=== PATIENT | female | born 1985 | race Caucasian/White ===

== ENCOUNTER 2024-02-03 14:42 | Outpatient (CLI) | payer BC, SELFPAY ==
--- NOTE | 2024-02-03 15:00 | US_ITS ---
Patient: JACKIE SCHAFER Facility:?[facility] RIS Patient ID:?[id number] Site Patient ID:?[id number]. Site :?1985 Study:?US-OB Pelvis OB F/U-02/03/2024 4:19:24 PM Ordering Physician:?Ana Laura Rivas Final Report: INDICATION: f/u Growth AMA, GDM COMPARISON: None available. TECHNIQUE: Real time mesa scale imaging of the fetus was performed. FINDINGS: Sonographic imaging demonstrates a single living intrauterine gestation. Fetus demonstrates a regular cardiac rate of 142 beats per minute. Fetus has a vertex position. The placenta lies posteriorly. Amniotic fluid volume appears normal and there is a single deepest vertical pocket: 3.3 cm. The estimated weight is 2965gm which lies at the 79th %. BPD 71st percentile. HC 81st percentile. AC 83rd percentile. FL 70th percentile. The HC/AC ratio measures 1.03 range (0.92-1.06). IMPRESSION: Sonographic gestational age 36 weeks 5 days and sonographic due date of 02/26/2024. Sonographic age 9 days ahead of the clinical age. Estimated weight 79th percentile. Abdominal circumference 83rd percentile Dictated by Leoncio Robles MD @ 02/04/2024 8:53:23 AM Signed by:?Leoncio Robles MD @02/04/2024 8:53:23 AM (Electronic Signature)
== END 2024-02-03 14:43 | disposition home or self-care (01) ==
LOC: US 14:43
PROVIDERS: Visit Provider Obstetrics & Gynecology
DX: O24.410 Gestational diabetes mellitus in pregnancy, diet controlled (principal); O09.523 Supervision of elderly multigravida, third trimester; Z3A.36 36 weeks gestation of pregnancy
CPT/HCPCS: 76816

== ENCOUNTER 2024-02-10 13:24 | Outpatient (CLI) | payer BC, SELFPAY ==
[2024-02-11 19:08] LABS: Strep B DNA Probe POSITIVE (Negative)
[2024-02-11 21:24] LABS: Strep B Susceptibility Needed? No
== END 2024-02-10 13:25 | disposition home or self-care (01) ==
LOC: NFLDREF 13:24
PROVIDERS: Visit Provider Obstetrics & Gynecology
DX: Z34.93 Encounter for supervision of normal pregnancy, unspecified, third trimester (principal)
CPT/HCPCS: 87081; 87653

== ENCOUNTER 2024-02-16 14:13 | Outpatient (CLI) | payer BC, SELFPAY ==
[2024-02-16 14:52] VITALS: BP 119/73; PULSE 122
--- NOTE | 2024-02-16 15:13 | PM.OBLDTN ---
OB - Triage/Final Diagnosis Visit Information Time Seen by Provider: 14:00 Date Seen: 02/16/24 Date of evaluation: 02/16/24 Narrative: The patient is a 38 year old 8 para 3 043 at 37.2 weeks gestation by LMP consistent with 1st trimester US, who presents with chest pressure, incision pain, possible LOF/discharge. Very active movement. Denies vaginal bleeding. Rare contractions. Her history is significant for previous CDx3. She is upset we are not allowing her to TOLAC after three delivery as that was initially her desire. I reiterated that unfortunately, that is not a safe plan. Overall, Marti feels unwell today. She reports being more fatigue and uncomfortable. Her chest pain is not associated with SOB, does not radiate, improves with rest. Her incision pain is actually bilateral side pain that sounds like round ligament pain. She had no pain with palpation along the whole incision. She reports increased vaginal discharge at the end of the day for the last two weeks. She is wondering if her water broke as her mucous plug fell out recently. She did have intercourse within the last 24 hours. Patient denies fever, chills, SOB, n/v, headache, vision changes, RUQ pain, or dizziness. Denies hematuria or dysuria. Physical exam: General: No acute distress Psych: Alert and oriented x4, full affect HEENT: Normocephalic, atraumatic Neck: No cervical adenopathy, no thyromegaly Heart: Regular rate and rhythm, no murmur rub or gallop Lungs: Clear to auscultation bilaterally Abdomen: Gravid. soft, no tenderness, rebound, or guarding. Incision: Well healed. No tenderness along the entire incision site. Tolerated abdominal ultrasound around that area without issue. No erythema, induration, or abnormal discharge/breakdown Skin: No lesions or rashes Lower extremities: No edema or erythema Pelvic exam: Sterile speculum performed as she had intercourse with last 24 hours so AmniSure can not be used. Mons normal, clitoris normal, urethral meatus normal. Labia minora and majora normal in appearance bilaterally. Perineum and anus normal appearance. Vaginal introitus normal appearance. Vagina pink and well rugated with normal white discharge. Cervix pink and without lesion. Cervix visually closed. Negative pooling. Negative valsalva test. No ferning noted. SVE: cl/thi/hi BPP performed due to non reactive NST for 40 minutes. After 40 minutes, NST was reactive and reassuring. BPP 8/8. SDP 5.5 cm EKG with sinus tachycardia. HR 111 bpm Troponin <0.01 CBC with normal WBC, hgb and plt Vaginitis panel with GC/chlamydia negative Work up overall negative. status is reassuring. She is not in labor nor have rupture of membrane. She declined Tylenol or any kind of other analgesia as she is currently comfortable. Stable and appropriate for discharge with strict ED precaution and close follow up to clinic (clinic appointment on 02/19). Evaluation Laboratory results: Laboratory Tests 02/16/24 Range/Units 14:45 Vaginal Bacterial Vaginosis Pending Vaginal Maggie species Pending Vag C. glabrata/krusei Pending Vag T. vaginalis Pending C.trachomatis Ampl DNA Pending N.gonorrhoeae Ampl DNA Pending Vital signs: Vital Signs - 24 hr 02/16/24 14:52 Pulse Rate 122 H Blood Pressure 119/73
--- NOTE | 2024-02-16 15:16 | US_ITS ---
Patient: JACKIE SCHAFER Facility:?[facility] Patient ID:?[id number] Site Patient ID:?[id number]. Site :?1985 Study:?US-OB Pelvis BPP-02/16/2024 3:48:57 PM Ordering Physician:MARGUERITE Final Report: Indication: Nonreassuring FHR TIFFANIE: 03/06/2024 Technique: Real-time sonographic images of the pelvis were obtained transabdominally using grayscale, color, and Doppler imaging. Comparison: 02/03/2024 Findings: A single intrauterine is present in cephalic position. Cardiac activity in the fetus is demonstrated at 142-154 BPM. Placenta: Fundal. No previa or abruption. Amniotic Fluid: 5.5 centimeter single deepest pocket. Biophysical profile: Breathin/2 Movement: 2/2 Tone: 2/2 Fluid volume: 2/2 Total: 07/08 Impression: 1. Single living intrauterine gestation in cephalic presentation, with heartrate 142-154 BPM. 2. Fundal placenta without previa or abruption. 3. Amniotic fluid, 5.5 centimeter single deepest pocket. 4. BPP 07/08. Dictated by Rodriguez Cordova MD @ 02/16/2024 4:29:04 PM Signed by:?Rodriguez Cordova MD @02/16/2024 4:29:04 PM (Electronic Signature)
[2024-02-16 15:28] VITALS: BP 103/57; PULSE 111
[2024-02-16 15:29] VITALS: RESP 18; TEMP 36.8
[2024-02-16 15:54] LABS: Bacterial Vaginosis* Negative (Negative); Candida glab/krus NOT DETECTED (No Detected); Candida species NOT DETECTED (No Detected); Trichomonas vaginalis NOT DETECTED (No Detected)
[2024-02-16 16:04] LABS: Basophils Absolute Auto 0.02 K/uL (0.00-0.30); Basophils Percent Auto 0.3 % (0.0-3.0); Eosinophils Absolute Auto 0.03 K/uL (0.00-0.50); Eosinophils Percent Auto 0.4 % (0.0-7.0); Hematocrit 37.4 % (33.0-51.0); Hemoglobin* 12.5 gm/dL (12.0-16.0); Immature Granulocytes Abs Auto 0.23 K/uL (0.00-0.30); Immature Granulocytes Pct Auto 3.2 %; Lymphocytes Percent Auto 5.2 % (20-44); Mean Corpuscular HGB Conc 33 gm/dL (32-36); Mean Corpuscular Hemoglobin 29 pg (26-34); Mean Corpuscular Volume 87 fL (80-100); Monocytes Percent Auto 7.8 % (0.0-11.0); Neutrophils Percent Auto 83.1 % (42.0-72.0); Platelet Count* 174 K/uL (140-440); Red Blood Count 4.32 m/uL (4.00-5.20); White Blood Count* 7.28 K/uL (4.50-11.00)
[2024-02-16 16:19] LABS: Albumin* 3.3 g/dL (3.3-5.0); Chloride* 105 mmol/L (96-114); Sodium* 133 mmol/L (135-149)
[2024-02-16 16:20] LABS: Potassium* 4.1 mmol/L (3.6-5.1)
[2024-02-16 16:22] LABS: Alanine Aminotransferase* 32 U/L (4-35); Alkaline Phosphatase* 140 U/L (40-150); Anion Gap 5 mEq/L (7-15); Aspartate Amino Transferase* 15 U/L (12-35); Bilirubin Total* 0.3 mg/dL (0.1-1.5); Blood Urea Nitrogen* 15 mg/dL (5-24); Carbon Dioxide* 23 mmol/L (20-32); Creatinine* 0.6 mg/dL (0.5-1.5); Estimated Glomerular Filt Rate 118 ml/min; Glucose* 80 mg/dL (60-115); Total Protein* 6.1 g/dL (6.0-8.3)
[2024-02-16 16:23] LABS: Calcium* 8.8 mg/dL (8.4-10.6)
[2024-02-16 16:24] LABS: Chlamydia DNA Amplified* NOT DETECTED (No Detected); GC DNA Amplified* NOT DETECTED (No Detected)
[2024-02-16 16:48] LABS: Troponin I* < 0.01 ng/mL (0.01-0.04)
--- NOTE | 2024-02-16 17:06 | PC.OBNST ---
NST Note NST Note Start: 02/16/24 14:22 Freq: ONCE Status: Active Protocol: Document 02/16/24 17:03 RENA (Rec: 02/16/24 17:06 ARSENNIXON [id number]) NST Note 8 Para (# of births) 3 EDC 03/06/24 Gestational Age In Weeks & Days 37 Weeks & 2 Days High Risk Factors Diabetes - Gestational Diet Controlled Patient Presented with Complaint(s) of Pain If Pain, describe location Presented to us for abdominal pain that was located at the edge of c/s scar Reactive Yes Appropriate for Gestational Age Yes HANS Parker RNC Date 02/16/24 Reactive Yes Appropriate for Gestational Age Yes HANS Lee RNC Date 02/16/24 OB NST charge Yes Complete NST Note via Write Note Yes The provider's electronic signature indicates the NST is reactive/appropriate for gestational age. *Note to provider: If an addendum is required, open the patient's chart and click on the note under the Nurse/Allied Health tab.
[2024-02-16 17:33] LABS: Slide Review Acceptable Review (Acceptable); Slide Review Reflex No
[2024-02-25 10:50] LABS: Fern Test* Ferning not present
== END 2024-02-16 16:55 | disposition home or self-care (01) ==
LOC: OB OUT 14:15 → OB 14:16
PROVIDERS: Visit Provider Obstetrics & Gynecology
DX: O47.1 False labor at or after 37 completed weeks of gestation (principal); O24.419 Gestational diabetes mellitus in pregnancy, unspecified control; Z3A.37 37 weeks gestation of pregnancy
CPT/HCPCS: 36415; 59025; 76815; 76819; 80053; 81513; 84484; 85025; 87481; 87491; 87591; 87661; 93005; G0463; Q0114

== ENCOUNTER 2024-02-25 06:22 | Inpatient (IN) | payer BC, SELFPAY ==
[2024-02-25] VITALS (34 sets, daily range): BP systolic 95–116; BP diastolic 57–77; PULSE 63–101; RESP 18; TEMP 36.7–37.4; O2SAT 94–97; BMI 34.2
[2024-02-25 08:13] LABS: Basophils Absolute Auto 0.01 K/uL (0.00-0.30); Basophils Percent Auto 0.1 % (0.0-3.0); Eosinophils Absolute Auto 0.06 K/uL (0.00-0.50); Eosinophils Percent Auto 0.7 % (0.0-7.0); Hematocrit 39.2 % (33.0-51.0); Hemoglobin* 13.2 gm/dL (12.0-16.0); Immature Granulocytes Abs Auto 0.37 K/uL (0.00-0.30); Immature Granulocytes Pct Auto 4.4 %; Lymphocytes Absolute Auto 1.81 K/uL (0.90-2.90); Lymphocytes Percent Auto 21.5 % (20-44); Mean Corpuscular HGB Conc 34 gm/dL (32-36); Mean Corpuscular Hemoglobin 29 pg (26-34); Mean Corpuscular Volume 86 fL (80-100); Neutrophils Absolute Auto 5.67 K/uL (1.7-7.0); Neutrophils Percent Auto 67.3 % (42.0-72.0); Platelet Count* 229 K/uL (140-440); RDW Coefficient of Variation % 13.7 % (11.5-15.5); Red Blood Count 4.58 m/uL (4.00-5.20); Slide Review Reflex No; White Blood Count* 8.43 K/uL (4.50-11.00)
[2024-02-25] MEDS: LACTATED RINGERS 1000 ML 1,000 ML 100 ML IV ×2 (08:24→09:12)
--- NOTE | 2024-02-25 08:27 | W.ANESCHARGE ---
Anesthesia Charges Start Date/Time Anesthesia Start Date: 02/25/24 Anesthesia Start Time: 08:32 Stop Date/Time Anesthesia Stop Date: 02/25/24 Anesthesia Stop Time: 10:13
--- NOTE | 2024-02-25 08:27 | W.PM.NB ---
Nerve Block Nerve Block Time Seen by Provider: 09:58 Date Seen: 02/25/24 Type of block requested by surgeon for post-operative analgesia: TAP Side: bilateral Time out performed: Yes Verification of patient name: Yes Verification of date of : Yes Site marking: site marked Name of person performing procedure: Kehinde Continuous monitoring Was continuous monitoring of O2 sat, B/P, personnel monitor, recorded every 15 minutes?: Yes Procedure Checklist: sterile prep, needles and gloves Ultrasound guided. Images saved: Yes Medications given in 5ml increments after negative aspiration: Marcaine %: 0.25 mL: 30 Needle gauge: 20 and Exparel mL: 10 Patient tolerated procedure well: Yes Additional comments: Needle noted between internal oblique and transversus abdominus. Local spread visualized Block Charges Block Charge (with Pro Fee): TAP Bilateral Use of Ultrasound Machine for Block: Yes- US Guidance/pain block
[2024-02-25] MEDS: CEFAZOLIN 2 GM INJ IVP (08:53)
--- NOTE | 2024-02-25 10:06 | W.PM.H&PU ---
History & Physical Update History & Physical Update H&P Reviewed and patient assessed: No changes noted
--- NOTE | 2024-02-25 10:06 | PM.OBPRCCS ---
Procedure Date of procedure: 02/25/24 Pre-op diagnosis: 38+4 weeks gestation, h/o 3 prior c-sections Post-op diagnosis: same Procedure Done: Global Will [facility] bill your pro fee for this procedure?: Yes Blood Loss Measurement Type: QBL (197 mL) Bakri Used: No IV fluids (mL): 1,400 Urine Output (mL): 100 Surgeon: Ana Laura Rivas MD Anesthesia Type: Spinal (and TAP block) Findings: Thickened, retracted Pfannenstiel scar. Moderate adhesions between Sharan's and parietal fascia and rectus muscles, underlying peritoneum, and omentum. Moderate adhesions between bladder and lower uterine segment. Live-born male infant, cephalic presentation, Apgars eight and nine at one and 5 minutes respectively, weight 7 lb 14 oz. Procedure Name: Repeat low transverse section with scar revision. Procedure Description: After obtaining informed consent, the patient was taken to the operating room where spinal anesthesia was obtained and found to be adequate. She was prepared and draped in the normal sterile fashion in the dorsal supine position with a leftward tilt. A Pfannenstiel skin incision was made with a scalpel in elliptical fashion around the patient's previous Pfannenstiel scar. This incision was carried down to the underlying layer of fascia with the Bovie. The fascia was incised in the midline and the incision extended laterally. The superior and inferior aspects of the fascial incision were grasped with Giovana clamps, elevated and the underlying rectus muscles dissected off sharply and with electrocautery. This dissection took an increased amount of time given the dense adhesions. The rectus muscles were then in the midline. There were some omental adhesions to the peritoneum on the right side, but these were easily retracted to the right and not taken down. The adhesions between the bladder and lower uterine segment were taken down sharply with Metzenbaum scissors. The Henrik O retractor was then placed into the incision. The lower uterine segment was then incised in a transverse fashion with the scalpel. Upon entry into the uterus, amniotic membranes bulged. Membranes were ruptured with the pickups, clear amniotic fluid was noted. The uterine incision was extended laterally with blunt finger fractionation. The 's head was delivered atraumatically, followed by the remainder of the infant's body. The nose and mouth were suctioned with the bulb suction. The cord was doubly clamped and cut, and the was handed off the field for evaluation. The placenta was delivered spontaneously with umbilical cord traction and fundal massage. The uterus was cleared of all clots and debris. The uterine incision was reapproximated in a running locking fashion with a 0 chromic suture. A 2nd layer of the same suture was used to imbricate in horizontal fashion. The gutters were irrigated and suctioned. All instruments and retractors were removed. The anterior peritoneum was reapproximated in a running fashion with a 3-0 Vicryl suture taking care not to incorporate the omentum. The subfascial tissues were carefully inspected and hemostasis assured. The fascia was reapproximated in a running fashion with a looped 0 Maxon suture. The subcutaneous tissues were copiously irrigated. Hemostasis was assured. The incision was undermined where retracted. The skin was closed in a subcuticular fashion with 4-0 Vicryl. Surgical glue and dressing were applied. The patient tolerated the procedure well. Sponge, lap, needle, and instrument counts were reported as correct x2. The patient was taken to the recovery room, awake, and in stable condition. She did receive 2 grams of IV Ancef preoperatively. Complications: None. Pathology: none sent Surgery Debrief Performed: Yes Condition: stable Disposition: floor [place] total score - 1 minute: 8 total score - 5 minute: 9
--- NOTE | 2024-02-25 10:19 | W.ANESCHARGE ---
Anesthesia Charges Start Date/Time Anesthesia Start Date: 02/25/24 Anesthesia Start Time: 08:32 Stop Date/Time Anesthesia Stop Date: 02/25/24 Anesthesia Stop Time: 10:13
[2024-02-26] VITALS (10 sets, daily range): BP systolic 103–111; BP diastolic 65–75; PULSE 73–84; RESP 12–18; TEMP 36.3–37.4; O2SAT 95–97
[2024-02-26] MEDS: KETOROLAC 30 MG/ML inj IVP ×4 (05:00→23:53)
[2024-02-26 06:01] LABS: Hemoglobin* 11.6 gm/dL (12.0-16.0)
--- NOTE | 2024-02-26 09:09 | P.OBPN_ITS ---
OB - PN:Subj Subjective Date Seen: 02/26/24 Patient comments OB post-: no complaints and pain well controlled [place] infant status: and doing well [place] feeding status: exclusively Narrative: Marti is a 38 y.o. who was admitted to L & D for repeat C/S.? She had an uncomplicated repeat .? ? The patient feels well.? The pain is well controlled with current medications.? She states she notices a sloshing sound when up walking last evening. She felt this sound was coming from her abdomen, unable to reproduce this this morning. She has no other new complaints.? She is breast feeding and reports things are going well.? the patient has done well.? Vitals have been stable.? She has remained afebrile.? Has a good appetite, is tolerating a general diet.? She is voiding without difficulty.? She is passing gas and has not had a bowel movement.? She is ambulating and denies any dizziness.? Has Small amount of rubra lochia.? OB - PN: Obj Exam Physical Exam: Vital signs: Temp Pulse Resp BP Pulse Ox O2 Del Method 98.5 F 74 18 104/65 97 Room Air 02/26/24 05:09 02/26/24 05:09 02/26/24 06:49 02/26/24 05:09 02/26/24 05:09 02/26/24 05:09 Narrative: GENERAL APPEARANCE:? normal affect, alert, no distress MOOD:? appropriate CHEST:? clear to auscultation HEART:? regular rate and rhythm ABDOMEN:? soft, non-tender the uterine fundus is firm At Umbilicus, Midline and is appropriate for the stage of recovery. EXTREMITIES:? normal and trace edema Incision: Healing well, no surrounding erythema, abnormal induration or discharge Urinary Catheter Management: Wolf: Cath placed during this visit: yes, but has since been removed by the nurse Reason for continuing: surgical procedure Insertion date: 02/25/24 Insertion time: 08:50 Removal date: 02/25/24 Removal time: 20:00 OB - PN: Obj Data Labs Labs: Laboratory Results - last 24 hr 02/26/24 05:40 Hgb 11.6 L OB - PN: A/P Delivery Assessment and Plan (1) care and examination immediately after delivery: Status: Acute (2) Lactating mother: Status: Acute Plan day: 1 Plan: routine care Comments: Assessment/Plan?G 8 P 4 status post uncomplicated repeat .? ?? 1.? Continue route PP cares? 2.? .? May see if desired? 3.? Anticipate discharge home tomorrow or the following day per pt preference? 4. Plan 2 hr GTT in AM if patient agrees to this?
--- NOTE | 2024-02-26 11:00 | PM.ANPOST ---
Post Anesthesia Note Post Anesthesia Note Patient seen: Inpatient Respiratory Status: adequate Cardiovascular Status: adequate Mental Status: baseline Pain: adequate Temp: baseline Anesthetic awareness: N/A Complications: none Follow care: none
[2024-02-26] MEDS: SIMETHICONE 80 MG TAB.CHEW PO (12:14)
[2024-02-27 01:12] LABS: Rapid Plasma Reagin (RPR) Non Reactive (Non Reactive)
[2024-02-27 04:55] VITALS: BP 98/59; PULSE 66; RESP 12; TEMP 36.4
[2024-02-27 07:56] VITALS: BP 115/75; PULSE 70; RESP 16; TEMP 36.4; O2SAT 97
--- NOTE | 2024-02-27 08:17 | P.DS_ITS ---
DS: Providers Provider Date Seen: 02/27/24 Date of admission: 02/25/24 06:22 Primary care physician: Not a Local Provider Admitting Clinician: Ana Laura Rivas MD Attending Physician on discharge: Rex Fletcher CNM Date of Discharge: 02/27/24 DS: Diagnosis Discharge Diagnosis (1) care and examination immediately after delivery: Status: Acute (2) Lactating mother: Status: Acute Exam Narrative: Exam Narrative: GENERAL APPEARANCE:? normal affect, alert, no distress MOOD:? appropriate CHEST:? clear to auscultation HEART:? regular rate and rhythm ABDOMEN:? soft, non-tender the uterine fundus is firm At Umbilicus, Midline and is appropriate for the stage of recovery. EXTREMITIES:? normal and no edema Incision: Healing well, no surrounding erythema, abnormal induration or discharge Const: Vital Signs, click to edit/add: Vital Signs - 24 hr 02/26/24 18:18 02/26/24 19:57 02/27/24 04:55 Temperature 99.3 F 97.3 F L 97.5 F L Pulse Rate [Pulse Oximeter] 84 73 66 Respiratory Rate 16 12 12 Blood Pressure [Ri ght Arm] 111/75 103/65 98/59 L Pulse Oximetry Oxygen Delivery Me thod 02/27/24 07:56 Temperature 97.5 F L Pulse Rate [Pulse Oximeter] 70 Respiratory Rate 16 Blood Pressure [Ri ght Arm] 115/75 Pulse Oximetry 97 Oxygen Delivery Me thod Room Air Documenting provider has reviewed patient's vital signs: yes OB - DS: Summary Hospital Course Hospital Course: Marti is a 38 y.o. who was admitted to L & D for repeat C/S. ?She had an uncomplicated .?The patient feels well. ?The pain is well controlled with current medications. ?She has no new complaints. ?She is breast feeding and reports things are going well.? the patient has done well.? Vitals have been stable.? She has remained afebrile.? Has a good appetite, is tolerating a general diet. ?She is voiding without difficulty.? She is passing gas and has had a small bowel movement.? She is ambulating and denies any dizziness.? Has Small amount of rubra lochia. ?She is planning NFP for prevention. She was recommended to have her 2 hour GTT while inpatient, she is declining this and does not plan to do this . She states she will have a Hgb A1C drawn at a year. Peripartum Data delivery method: Repeat Section Procedures: Procedures Operation Date: 02/25/24 08:35 Actual Procedure Side Surgeon p Repeat Section Ana Laura Rivas MD complications: none [place] Infant Gender: Male Infant Discharge Plan: Home Status at Discharge Functional status at discharge: independent ambulation Overall status at discharge: patient is progressing back to baseline Time Spent with Patient Time attestation: Total time spent providing and/or coordinating discharge services: Time spent: Less than 30 minutes Discharge Plan Discharge Disposition: Home, Self-Care Date of Admission: 02/25/24 06:22 Attending Provider on Discharge: Rex Fletcher Primary Care Provider: Provider,Not a Local Condition: Stable Anticipated Discharge Date/Time: 02/27/24 12:00 Discharge Medications: New acetaminophen 500 mg Tablet 1,000 mg PO Q6H PRN (Reason: pain/fever) Qty: 0 0RF docusate sodium 100 mg Capsule 100 mg PO DAILY Qty: 90 0RF ibuprofen 600 mg Tablet 600 mg PO Q6H PRN (Reason: Pain) Qty: 60 0RF oxycodone 5 mg Tablet 5 - 10 mg PO Q4H PRN (Reason: Pain) Qty: 10 0RF Continued Classic 28 mg iron- 800 mcg tablet PO DAILY magnesium oxide 500 mg magnesium tablet 500 mg PO QDAY cholecalciferol (vitamin D3) 125 mcg (5,000 unit) capsule 125 mcg PO QDAY zinc gluconate 30 mg tablet 30 mg PO ONCE omega 0-vbo-fza-fish oil [Fish Oil] 300-1,000 mg capsule 1 cap PO QDAY Discontinued azithromycin 250 mg tablet See Rx Instructions PO .COMPLEX Qty: 6 0RF Rx Instructions: For 250 mg dose pack: take 500 mg today (day 1), then 250 mg for 4 days (days 2-5) PO Discharge Orders: Discharge Order (Routine); Ordered 02/27/24 Ordered By: Rex Fletcher Patient Education: OB Over the Counter Medication Information, OB /Breast Feeding Additional Instructions: Discharge instructions were reviewed with the patient including signs and symptoms of infection and home going medications Lifting Restrictions: 20 pounds for 6 weeks No not submerge incision under water X 2 weeks? Nothing vaginally for 6 weeks: no tampons or intercourse Do not drive while taking narcotic pain medication(s) Off Work or School for 6 weeks 2-week visit: incision check, discuss infant feeding concerns, review control options and screen for anxiety/depression. 6-week visit for an annual exam. consultation services are available to all mothers and babies for the first year after delivery.? To make an appointment, please call [phone]. Activity Level: Activity as Tolerated Discharge Diet: Regular Follow Up Appointments: Provider,Not a Local [Primary Care Provider[facility] - [facility] [Provider Group] Forms: [employer] Info Instructions
[2024-02-27] MEDS: DOCUSATE SODIUM 100 MG CAPSULE PO (08:46)
== END 2024-02-27 11:08 | disposition home or self-care (01) | DRG 540 ==
PROVIDERS: Admitting Provider Obstetrics & Gynecology; Visit Provider Obstetrics & Gynecology
PROC: 10D00Z1 Extraction of Products of Conception, Low, Open Approach (ICD-10-PCS; CPT 59514; principal; 2024-02-25 08:30)
DX: O34.211 Maternal care for low transverse scar from previous cesarean delivery (principal); O24.420 Gestational diabetes mellitus in childbirth, diet controlled; O99.824 Streptococcus B carrier state complicating childbirth; Z37.0 Single live birth; G89.18 Other acute postprocedural pain; O99.892 Other specified diseases and conditions complicating childbirth; N73.6 Female pelvic peritoneal adhesions (postinfective); O99.344 Other mental disorders complicating childbirth; F41.9 Anxiety disorder, unspecified; Z87.59 Personal history of other complications of pregnancy, childbirth and the puerperium; Z3A.38 38 weeks gestation of pregnancy
CPT/HCPCS: 01961; 36415; 64488; 76942; 82962; 85018; 85025; 86592; 86850; 86900; 86901; A9270; J0690; J1100; J1885; J2274; J2371; J2405; J2590; J7120